=== PATIENT | male | born 1990 | race Two or more races ===

== ENCOUNTER 2017-05-23 14:49 | Emergency (ER) | payer SELFPAY ==
[~2017-05-23] VITALS: Ht 175.3 cm; Wt 85.7 kg
[2017-05-23 15:19] LABS: BILIRUBIN,URINE NEGATIVE (NEG); GLUCOSE,URINE NEGATIVE (NEG); NITRITE,URINE NEGATIVE (NEG); PH,URINE 8.5; PROTEIN,URINE 100 mg/dL (NEG-TRACE)
[2017-05-23] MEDS ORDERED: IV NORMAL SALINE 1000ML BAG 1,000 ML IV SCH (15:24)
[2017-05-23] MEDS ORDERED: KETOROLAC TROMETHAMINE 30 MG/ML INJ. IV ONE (15:30)
[2017-05-23] MEDS ORDERED: ONDANSETRON PF 4 MG/2 ML VIAL. IV ONE (15:30)
--- NOTE | 2017-05-23 15:31 | ED.ADGEN ---
Past Medical History Past Medical History: No Pertinent History Past Surgical History: No Surgical History Alcohol Use: Occasionally Drug Use: None Adult General Chief Complaint Chief Complaint: ABDOMINAL PAIN HPI HPI Patient is a 26 year old and, with no significant past medical history, who presents to the emergency department with a complaint of intermittent right upper quadrant abdominal pain 2 weeks. Patient states pain sometimes worse with movement and with deep inspiration. Initially pain was intermittent, has been more persistent today, described as sharp and stabbing. He states it is associated with nausea and states that he had 6 episodes of vomiting today, nonbloody nonbilious, and is feeling nauseous at this time. He states that eating and drinking does not seem to make a difference for the pain. He denies any similar lesions previously. Denies any radiation of the pain, any chest pain , any shortness breath, any fevers, complains of subjective chills. States that he drinks 4 or 5 beers on the weekends, but does not drink alcohol daily, denies any drug use, does use cigarettes daily. No previous surgeries or abdominal issues. No diarrhea, states last bowel was today and was normal. No sick contacts or exposures, no recent travel, no rashes, no urinary complaints. No weakness, numbness or tingling. Review of Systems Review of Systems Constitutional: Denies fever, complaining of chills. [] Eyes: Denies change in visual acuity. [] HENT: Denies nasal congestion or sore throat. [] Respiratory: Denies cough or shortness of breath. [] Cardiovascular: Denies chest pain or edema. [] GI: Denies bloody stools or diarrhea. [] Right upper quadrant abdominal pain, associated with nausea and vomiting. No constipation. : Denies dysuria. [] Musculoskeletal: Denies back pain or joint pain. [] Integument: Denies rash. [] Neurologic: Denies headache, focal weakness or sensory changes. [] Endocrine: Denies polyuria or polydipsia. [] Lymphatic: Denies swollen glands. [] Psychiatric: Denies depression or anxiety. [] Current Medications Current Medications Current Medications Medications (Trade) Dose Ordered Sig/Aide Start Time Stop Time Status Last Admin Dose Admin Ketorolac Tromethamine (Toradol) 10 mg 1X ONCE 05/23/17 15:30 05/23/17 15:31 DC 05/23/17 15:49 10 MG Multi-Ingredient Mouthwash/Gargle (Gi Cocktail Single Dose) 15 ml 1X ONCE 05/23/17 16:45 05/23/17 16:46 DC 05/23/17 17:53 15 ML Ondansetron HCl (Zofran) 4 mg 1X ONCE 05/23/17 15:30 05/23/17 15:31 DC 05/23/17 15:49 4 MG Sodium Chloride 1,000 ml @ 1,000 mls/hr Q1H 05/23/17 15:24 05/23/17 16:23 DC 05/23/17 15:48 1,000 MLS/HR Allergies Allergies Allergies Coded Allergies Type Severity Reaction Last Updated Verified No Known Drug Allergies 05/23/17 No Physical Exam Physical Exam Constitutional: Well developed, well nourished, no acute distress, non-toxic appearance. [] HENT: Normocephalic, atraumatic, bilateral external ears normal, oropharynx moist, no oral exudates, nose normal. [] Eyes: PERRLA, EOMI, conjunctiva normal, no discharge. [] Neck: Normal range of motion, no tenderness, supple, no stridor. [] Cardiovascular:Heart rate regular rhythm, no murmur , S1, S2, rubs or gallops.[] Lungs & Thorax: Bilateral breath sounds clear to auscultation, no wheezing, rhonchi, rales. No chest or crepitus or tenderness. [] Abdomen: Bowel sounds normal, soft, tenderness to palpation in the right upper and right middle abdomen, no rebound or rigidity, no guarding, epigastric tenderness also noted, no masses, no pulsatile masses. [] Skin: Warm, dry, no erythema, no rash. [] Back: No tenderness, no CVA tenderness. [] Extremities: No tenderness, no cyanosis, no clubbing, ROM intact, no edema. [] Neurologic: Alert and oriented X 3, normal motor function, normal sensory function, no focal deficits noted. [] Psychologic: Affect normal, judgement normal, mood normal. [] Current Patient Data Vital Signs Vital Signs Date Time Temp Pulse Resp B/P (MAP) Pulse Ox O2 Delivery O2 Flow Rate FiO2 05/23/17 17:45 64 17 109/66 (80) 97 Room Air 05/23/17 15:00 97.7 97.7 Lab Values Laboratory Tests Test 05/23/17 15:00 05/23/17 15:05 Urine Color Yellow Urine Clarity Turbid Urine pH 8.5 Urine Specific [place] 1.020 Urine Protein 100 mg/dL (NEG-TRACE) Urine Glucose (UA) Negative mg/dL (NEG) Urine Ketones (Stick) Negative mg/dL (NEG) Urine Blood Negative (NEG) Urine Nitrite Negative (NEG) Urine Bilirubin Negative (NEG) Urine Urobilinogen Dipstick 1.0 mg/dL (0.2 mg/dL) Urine Leukocyte Esterase Negative (NEG) Urine RBC 0 /HPF (0-2) Urine WBC Occ /HPF (0-4) Urine Squamous Epithelial Cells Occ /LPF Urine Amorphous Sediment Present /HPF Urine Bacteria 0 /HPF (0-FEW) Urine Opiates Screen Neg (NEG) Urine Methadone Screen Neg (NEG) Urine Barbiturates Neg (NEG) Urine Phencyclidine Screen Neg (NEG) Urine Amphetamine/Methamphetamine Neg (NEG) Urine Benzodiazepines Screen Neg (NEG) Urine Cocaine Screen Neg (NEG) Urine Cannabinoids Screen Pos (NEG) Urine Ethyl Alcohol Neg (NEG) White Blood Count 10.5 x10^3/uL (4.0-11.0) Red Blood Count 5.44 x10^6/uL (4.30-5.70) Hemoglobin 17.5 g/dL (13.0-17.5) Hematocrit 51.1 % (39.0-53.0) Mean Corpuscular Volume 94 fL (79-100) Mean Corpuscular Hemoglobin 32 pg (25-35) Mean Corpuscular Hemoglobin Concent 34 g/dL (31-37) Red Cell Distribution Width 12.9 % (11.5-14.5) Platelet Count 276 x10^3/uL (140-400) Neutrophils (%) (Auto) 77 % (31-73) H Lymphocytes (%) (Auto) 18 % (24-48) L Monocytes (%) (Auto) 5 % (0-9) Eosinophils (%) (Auto) 0 % (0-3) Basophils (%) (Auto) 0 % (0-3) Neutrophils # (Auto) 8.1 x10^3uL (1.8-7.7) H Lymphocytes # (Auto) 1.9 x10^3/uL (1.0-4.8) Monocytes # (Auto) 0.5 x10^3/uL (0.0-1.1) Eosinophils # (Auto) 0.0 x10^3/uL (0.0-0.7) Basophils # (Auto) 0.0 x10^3/uL (0.0-0.2) Sodium Level 140 mmol/L (136-145) Potassium Level 3.5 mmol/L (3.5-5.1) Chloride Level 101 mmol/L (98-107) Carbon Dioxide Level 32 mmol/L (21-32) Anion Gap 7 (6-14) Blood Urea Nitrogen 10 mg/dL (8-26) Creatinine 0.8 mg/dL (0.7-1.3) Estimated GFR (Cockcroft-Gault) 116.0 BUN/Creatinine Ratio 13 (6-20) Glucose Level 100 mg/dL (70-99) H Calcium Level 9.8 mg/dL (8.5-10.1) Total Bilirubin 0.6 mg/dL (0.2-1.0) Aspartate Amino Transferase (AST) 12 U/L (15-37) L Alanine Aminotransferase (ALT) 19 U/L (16-63) Alkaline Phosphatase 75 U/L (46-116) Total Protein 8.1 g/dL (6.4-8.2) Albumin 4.1 g/dL (3.4-5.0) Albumin/Globulin Ratio 1.0 (1.0-1.7) Lipase 132 U/L (73-393) Laboratory Tests 05/23/17 15:05 Laboratory Tests 05/23/17 15:05 EKG EKG Not indicated.[] Radiology/Procedures Radiology/Procedures [][facility] [address] [place] [address] IMAGING REPORT Signed PATIENT: PHIL MEYER ACCOUNT: [id number] : 1990 LOCATION: ER AGE: 26 SEX: M EXAM STATUS: REG ER ORD. PHYSICIAN: TESFAYE VERGARA DO REASON: abd pain/n/v PROCEDURE: ACUTE ABDOMEN SERIES Indication abdominal pain. Nausea and vomiting. A single view of the chest was obtained as well as flat and upright films of the abdomen. No similar imaging is available. The heart and pulmonary vessels appear normal. The mediastinum appears normal. The lungs are clear. There is no pleural fluid or pneumothorax. There is no free air. There is slight dilatation of small bowel loops in the left upper abdomen. This is a nonspecific finding. There is no free air. There is no evidence of high-grade mechanical obstruction. No organomegaly or abnormal calculi are seen. IMPRESSION: No acute finding in the chest. Nonspecific findings on plain films of the abdomen DICTATED and SIGNED BY: LAKEISHA POLLARD MD DATE: 05/23/17 1787 CC: TESFAYE VERGARA DO; NO PCP ~ Impressions: [facility] [address] [place], [place] [id number] IMAGING REPORT Signed PATIENT: PHIL MEYER ACCOUNT: [id number] : 1990 LOCATION: ER AGE: 26 SEX: M EXAM STATUS: REG ER ORD. PHYSICIAN: TESFAYE VERGARA DO REASON: RUQ pain/n/v x 2 weeks PROCEDURE: ABDOMEN LTD Right upper quadrant abdominal ultrasound, 05/23/2017: History: Right upper quadrant pain The gallbladder is within normal limits in size. There is no sonographic evidence of cholelithiasis. The gallbladder perez are not thickened. No bile duct dilatation is seen. The liver measures 17 cm in craniocaudad extent. There is no evidence of a hepatic mass. The pancreas was obscured by overlying bowel. Limited views of the right kidney show no abnormality. IMPRESSION: No significant gallbladder abnormality is detected. DICTATED and SIGNED BY: TANYA RANDALL MD DATE: 05/23/17 1551 CC: TESFAYE VERGARA DO; NO PCP ~ Course & Med Decision Making Course & Med Decision Making Pertinent Labs and Imaging studies reviewed. (See chart for details) patient with tenderness primarily in epigastric right upper quadrant region, discussed with patient at bedside will proceed with ultrasound right upper quadrant laboratory studies and symptom management. Patient received intravenous normal saline, Toradol, Zofran and a GI cocktail in the ED. Reevaluation he is feeling better. Vital signs remained stable, laboratory studies not reveal any concerning findings, ultrasound of the right upper quadrant and acute abdominal series not reveal any acutely concerning findings. Discussed with patient that the symptoms may be due to a viral illness, no concerning findings identified at this time, we did discuss concerning symptoms that prompt return to the ED, and importance of establishing follow-up and primary care provider. Patient voiced understanding and agreement with plan as stated, discharged home in stable condition with prescriptions for Zofran and Bentyl, and clear and detailed return follow-up instructions as discussed. Dragon Disclaimer Dragon Disclaimer This electronic medical record was generated, in whole or in part, using a voice recognition dictation system. Departure Impression: Primary Impression: Abdominal pain Disposition: HOME, SELF-CARE Condition: IMPROVED Scripts Dicyclomine Hcl (BENTYL) 10 Mg Capsule 10 MG PO QID Y for ABDOMINAL CRAMPING for 12 Days, #12 TAB Prov: TESFAYE VERGARA DO 05/23/17 Ondansetron Hcl (ZOFRAN) 4 Mg Tablet 1 TAB PO PRN Q8HRS Y for 12, #5 TAB Prov: TESFAYE VERGARA DO 05/23/17 TESFAYE VERGARA DO May 23, 2017 15:31
[2017-05-23 15:35] LABS: BASO % 0 % (0-3); EOS % 0 % (0-3); HEMATOCRIT 51.1 % (39.0-53.0); HEMOGLOBIN 17.5 g/dL (13.0-17.5); LYMPH # 1.9 x10^3/uL (1.0-4.8); LYMPH % 18 % (24-48); MEAN CORPUSCULAR HEMOGLOBIN 32 pg (25-35); MEAN CORPUSCULAR HGB CONC 34 g/dL (31-37); MEAN CORPUSCULAR VOLUME 94 fL (79-100); MONO % 5 % (0-9); NEUT % 77 % (31-73); PLATELET COUNT 276 x10^3/uL (140-400); RED BLOOD COUNT 5.44 x10^6/uL (4.30-5.70); RED CELL DISTRIBUTION WIDTH 12.9 % (11.5-14.5); WHITE BLOOD COUNT 10.5 x10^3/uL (4.0-11.0)
[2017-05-23 15:45] LABS: BACTERIA,URINE 0 /HPF (0-FEW); RBC,URINE 0 /HPF (0-2); SQUAMOUS EPITHELIAL CELL,UR OCC /LPF; WBC,URINE OCC /HPF (0-4)
--- NOTE | 2017-05-23 15:55 | RAD ---
Right upper quadrant abdominal ultrasound, 05/23/2017: History: Right upper quadrant pain The gallbladder is within normal limits in size. There is no sonographic evidence of cholelithiasis. The gallbladder perez are not thickened. No bile duct dilatation is seen. The liver measures 17 cm in craniocaudad extent. There is no evidence of a hepatic mass. The pancreas was obscured by overlying bowel. Limited views of the right kidney show no abnormality. IMPRESSION: No significant gallbladder abnormality is detected.
[2017-05-23 15:57] LABS: CALCIUM 9.8 mg/dL (8.5-10.1); CREATININE 0.8 mg/dL (0.7-1.3); POTASSIUM 3.5 mmol/L (3.5-5.1)
[2017-05-23 16:02] LABS: ALBUMIN 4.1 g/dL (3.4-5.0); TOTAL BILIRUBIN 0.6 mg/dL (0.2-1.0); TOTAL PROTEIN 8.1 g/dL (6.4-8.2)
[2017-05-23 16:22] LABS: BARBITURATES NEG (NEG); BENZODIAZEPINES NEG (NEG); CANNABINOIDS POS (NEG); COCAINE NEG (NEG); METHADONE NEG (NEG); OPIATES NEG (NEG); PHENCYCLIDINE NEG (NEG)
[2017-05-23] MEDS ORDERED: LIDO:MAALOX:DONNATAL 1:1:1 15 ML SINGLE DOSE SWSW ONE (16:45)
--- NOTE | 2017-05-23 17:23 | RAD ---
Indication abdominal pain. Nausea and vomiting. A single view of the chest was obtained as well as flat and upright films of the abdomen. No similar imaging is available. The heart and pulmonary vessels appear normal. The mediastinum appears normal. The lungs are clear. There is no pleural fluid or pneumothorax. There is no free air. There is slight dilatation of small bowel loops in the left upper abdomen. This is a nonspecific finding. There is no free air. There is no evidence of high-grade mechanical obstruction. No organomegaly or abnormal calculi are seen. IMPRESSION: No acute finding in the chest. Nonspecific findings on plain films of the abdomen
[2017-05-23] MEDS ORDERED: DICY10CA53 PO (17:40)
[2017-05-23] MEDS ORDERED: ONDA4TAB7 PO (17:40)
[2017-05-23 17:45] VITALS: BP 109/66
== END 2017-05-23 17:55 | disposition home or self-care (01) ==
LOC: ER 14:49
DX: R10.11 Right upper quadrant pain (principal); R11.2 Nausea with vomiting, unspecified
CPT/HCPCS: 36415; 74022; 76705; 80053; 80307; 81001; 83690; 85025; 96361; 96374; 96375; 99285; J1885; J2405; J7030; G0479